=== PATIENT | female | born 1975 | race Caucasian/White ===

== ENCOUNTER 2016-05-12 21:57 | Emergency (ER) | payer OTHER ==
[~2016-05-12] VITALS: Ht 160 cm; Wt 50.3 kg
[2016-05-12] MEDS ORDERED: HYDROCODONE/APAP 5/325MG 1 EACH TABLET ONE (22:45)
[2016-05-12] MEDS ORDERED: HYDROCODONE/APAP 5/325MG 1 EACH TABLET PO ONE (23:00)
[2016-05-12 23:36] VITALS: BP 116/74
== END 2016-05-12 23:36 | disposition home or self-care (01) ==
LOC: ER 22:08
DX: S13.4XXA Sprain of ligaments of cervical spine, initial encounter (principal); Z98.82 Breast implant status; V43.52XA Car driver injured in collision with other type car in traffic accident, initial encounter; Y93.89 Activity, other specified; Y92.413 State road as the place of occurrence of the external cause; Y99.8 Other external cause status
CPT/HCPCS: 72050; 99284; A4606; Z7610

== ENCOUNTER 2016-09-10 22:00 | Emergency (ER) | payer OTHER ==
[~2016-09-10] VITALS: Ht 160 cm; Wt 50.8 kg
[2016-09-10 22:05] VITALS: BP 105/60
== END 2016-09-10 23:25 | disposition home or self-care (01) ==
LOC: ER 22:02
DX: Z76.0 Encounter for issue of repeat prescription (principal); F41.9 Anxiety disorder, unspecified; J45.909 Unspecified asthma, uncomplicated
CPT/HCPCS: A4606; Z7610